=== PATIENT | male | born 1955 | race Two or more races ===

== ENCOUNTER 2018-04-21 14:48 | Emergency (ER) | payer OTHER ==
[~2018-04-21] VITALS: Ht 175.3 cm; Wt 86.2 kg
[2018-04-21] MEDS ORDERED: HUMALOG100 UNIT/1 (15:17)
[2018-04-21] MEDS ORDERED: LISINOPRIL5 MG (15:18)
[2018-04-21] MEDS ORDERED: CRESTOR5 MG (15:18)
== END 2018-04-21 18:04 | disposition home or self-care (01) ==
LOC: ER 14:48
DX: S62.634A Displaced fracture of distal phalanx of right ring finger, initial encounter for closed fracture (principal); S10.83XA Contusion of other specified part of neck, initial encounter; S39.82XA Other specified injuries of lower back, initial encounter; V80.010A Animal-rider injured by fall from or being thrown from horse in noncollision accident, initial encounter; Y93.89 Activity, other specified; Y92.89 Other specified places as the place of occurrence of the external cause; Y99.8 Other external cause status

== ENCOUNTER 2025-04-08 02:50 | Emergency (ER) | payer OTHER ==
[~2025-04-08] VITALS: Ht 170.2 cm; Wt 76.2 kg
[~2025-04-08 02:50] MED LIST: CRESTOR5 MG; HUMALOG100 UNIT/1; LISINOPRIL5 MG
[2025-04-08 04:39] LABS: BASO % 0.2 % (0.1-1.2); EOS # 0.03 (0.04-0.54); EOS % 0.3 % (0.7-7.0); LYMPH # 2.38 (1.18-3.74); LYMPH % 22.8 % (19.3-53.1); MEAN PLATELET VOLUME 9.40 fl (9.4-12.4); MONO # 1.21 (0.24-0.82); MONO % 11.6 % (4.7-12.5); NEUT # 6.45 (1.56-6.13); NEUT % 61.9 % (34.0-71.1); RED CELL DISTRIBUTION WIDTH 16.4 % (11.6-14.4)
[2025-04-08 05:05] LABS: INR 1.04
[2025-04-08 05:07] LABS: LYMPHOCYTE MAN 23.0 %; MONOCYTE MAN 7.0 %; NEUTROPHILS MAN 65.0 %
[2025-04-08 05:28] LABS: D DIMER 0.87 MG/L
[2025-04-08 05:39] LABS: ALT/SGPT 23.0 U/L (12-78); AST/SGOT 26.0 U/L (15-37); BILIRUBIN TOTAL 0.52 mg/dL (0.3-1.2); BUN CREA RATIO 11.0 (7.0-25.0); CREATININE SERUM 3.09 mg/dL (0.70-1.30); GFR 20.04; GLOBULINA 2.7 G/DL (2.4-3.5); GLUCOSE FASTING 177.0 mg/dL (65-100); OSMOLALITY SERUM 299.0 MOSM/KG (275-295)
[2025-04-08 06:12] LABS: URINE APPEARANCE Clear; URINE BILIRRUBIN Negative (NEGATIVE); URINE BLOOD Negative; URINE COLOR Yellow; URINE GLUCOSE Negative (NEGATIVE); URINE KETONE Negative (NEGATIVE); URINE LEUKOCYTE Negative; URINE NITRATE Negative; URINE PROTEIN Trace (NEGATIVE); URINE UROBILINOGEN 0.2 E.U./dl
[2025-04-08 06:16] LABS: URINE BACTERIA 4.7 uL (0.0-1933); URINE CAST 4.39 uL (0.0-1.40); URINE EPITHELIAL CELLS 5.6 uL (0.0-38.8); URINE WBC 2.6 uL (0.0-23.2)
[2025-04-08 06:23] LABS: URINE RBC 0.2 uL (0.0-20.8)
== END 2025-04-08 08:53 | disposition home or self-care (01) ==
LOC: ER 02:50
PROVIDERS: Physician Assistant Medical
DX: E11.649 Type 2 diabetes mellitus with hypoglycemia without coma (principal); Z79.4 Long term (current) use of insulin